=== PATIENT | male | born 1935 | race African-American/Black ===

== ENCOUNTER 2018-10-08 14:45 | Emergency (ER) | payer OTHER ==
[~2018-10-08] VITALS: Ht 180.3 cm; Wt 81.6 kg
--- NOTE | 2018-10-08 14:50 | NUR ---
ED Nurse Note: patient came in to ED brought in by ambulance from home, per family patient had unwitnessed seizure station captain 30 MINS AGO. HX OF SZ. patient is not following any command properly
--- NOTE | 2018-10-08 14:54 | Emergency Room Report ---
History of Present Illness General Chief Complaint: Seizure Source: EMS Present Illness HPI Patient is a 82-year-old male brought in by EMS after witnessed seizure. Patient prior history of recent onset of seizure disorder. Patient had recent started on Vimpat. He had not taken his dose prior to seizure onset which lasted approximately 1 minutes. Patient was noted to have prior history of dementia. Patient is normally followed at the [facility].Patient noted allergy to Keppra. He had one seizure lasting approximately 1-2 minutes. This was reportedly less than his previous seizures and has had 4 seizures in the past. This was reportedly due to patient's history of dementia. The patient's caregiver. Patient been acting normally prior to the seizure and had not been febrile or recently ill. He reportedly missed dosages of his Vimpat Allergies: Coded Allergies: LEVETIRACETAM (Verified Allergy, Unknown, 10/08/18) Patient History Past Medical History: see triage record, seizures Reviewed Nursing Documentation: PMH: Agreed; PSxH: Agreed Nursing Documentation-PMH Past Medical History: No History, Except For Hx Hypertension: Yes Hx Diabetes: Yes Hx Neurological Problems: Yes - SZ, DEMENTIA Review of Systems All Other Systems: negative except mentioned in HPI Physical Exam Vital Signs Date Time Temp Pulse Resp B/P (MAP) Pulse Ox O2 Delivery O2 Flow Rate FiO2 10/08/18 14:40 104 20 146/97 98 Room Air Sp02 EP Interpretation: reviewed, normal General Appearance: normal inspection, well appearing, non-toxic, Chronically Ill Head: atraumatic ENT: normal ENT inspection, hearing grossly normal, normal voice Neck: normal inspection, full range of motion, supple, no bony tend Respiratory: normal inspection, lungs clear, normal breath sounds, no respiratory distress, no retraction, no wheezing Cardiovascular #1: regular rate, rhythm, no edema Gastrointestinal: normal inspection, normal bowel sounds, non tender, soft, no guarding, no hernia Genitourinary: no CVA tenderness Musculoskeletal: normal inspection, back normal, normal range of motion Neurologic: normal inspection, alert, oriented x3, responsive, investment specialist III-XII nml as tested, speech normal Psychiatric: mood/affect normal Skin: normal inspection, normal color, no rash Medical Decision Making Diagnostic Impression: Primary Impression: Epileptic seizure, generalized Additional Impression: Cerebral ventriculomegaly ER Course Presented for seizure activity. Differential diagnosis include was not limited to CVA, intracranial hemorrhage, medication withdrawal, electrolyte abnormality among others. Because of complexity of patient's case laboratory testing and imaging studies were ordered.Patient's laboratory testing was unremarkable. Patient was given Vimpat. Patient noted to have gradual improvement in his mental status. At the time of discharge patient was ambulatory with assistance which is baseline mental status.Urinalysis showed some evidence of hematuria which is likely traumatic due to catheterization.Patient was noted to have some history of dementia and is baseline somewhat confused.Patient was discharged home with his caregiver who was advised to have him follow-up with his neurologist. Patient was to return if there is any worsening of condition Labs Test 10/08/18 15:40 10/08/18 18:41 White Blood Count 10.8 K/UL (4.8-10.8) Red Blood Count 5.64 M/UL (4.70-6.10) Hemoglobin 12.7 G/DL (14.2-18.0) Hematocrit 41.3 % (42.0-52.0) Mean Corpuscular Volume 73 FL (80-99) Mean Corpuscular Hemoglobin 22.5 PG (27.0-31.0) Mean Corpuscular Hemoglobin Concent 30.8 G/DL (32.0-36.0) Red Cell Distribution Width 12.5 % (11.6-14.8) Platelet Count 197 K/UL (150-450) Mean Platelet Volume 8.1 FL (6.5-10.1) Neutrophils (%) (Auto) % (45.0-75.0) Lymphocytes (%) (Auto) % (20.0-45.0) Monocytes (%) (Auto) % (1.0-10.0) Eosinophils (%) (Auto) % (0.0-3.0) Basophils (%) (Auto) % (0.0-2.0) Differential Total Cells Counted 100 Neutrophils % (Manual) 91 % (45-75) Lymphocytes % (Manual) 8 % (20-45) Monocytes % (Manual) 1 % (1-10) Eosinophils % (Manual) 0 % (0-3) Basophils % (Manual) 0 % (0-2) Band Neutrophils 0 % (0-8) Platelet Estimate Adequate Platelet Morphology Normal Red Blood Cell Morphology Normal Sodium Level 138 MMOL/L (136-145) Potassium Level 3.8 MMOL/L (3.5-5.1) Chloride Level 100 MMOL/L (98-107) Carbon Dioxide Level 31 MMOL/L (21-32) Anion Gap 7 mmol/L (5-15) Blood Urea Nitrogen 19 mg/dL (7-18) Creatinine 1.2 MG/DL (0.55-1.30) Estimat Glomerular Filtration Rate mL/min (>60) Glucose Level 189 MG/DL (74-106) Calcium Level 9.8 MG/DL (8.5-10.1) Total Bilirubin 0.2 MG/DL (0.2-1.0) Aspartate Amino Transf (AST/SGOT) 19 U/L (15-37) Alanine Aminotransferase (ALT/SGPT) 25 U/L (12-78) Alkaline Phosphatase 114 U/L (46-116) Troponin I 0.005 ng/mL (0.000-0.056) Total Protein 7.9 G/DL (6.4-8.2) Albumin 3.7 G/DL (3.4-5.0) Globulin 4.2 g/dL Albumin/Globulin Ratio 0.9 (1.0-2.7) Urine Color Pale yellow Urine Appearance Slightly cloudy Urine pH 7 (4.5-8.0) Urine Specific [place] 1.015 (1.005-1.035) Urine Protein 2+ (NEGATIVE) Urine Glucose (UA) 2+ (NEGATIVE) Urine Ketones Negative (NEGATIVE) Urine Blood 4+ (NEGATIVE) Urine Nitrite Negative (NEGATIVE) Urine Bilirubin Negative (NEGATIVE) Urine Urobilinogen Normal MG/DL (0.0-1.0) Urine Leukocyte Esterase Negative (NEGATIVE) Urine RBC 60-80 /HPF (0 - 0) Urine WBC 0-2 /HPF (0 - 0) Urine Squamous Epithelial Cells None /LPF (NONE/OCC) Urine Bacteria Few /HPF (NONE) Urine Mucus Few /LPF (NONE/OCC) Last Vital Signs Date Time Temp Pulse Resp B/P (MAP) Pulse Ox O2 Delivery O2 Flow Rate FiO2 10/08/18 14:40 104 20 146/97 98 Room Air Status: improved Disposition: HOME, SELF-CARE Condition: Stable Evaristo Rasheed MD Oct 08, 2018 14:54
[2018-10-08 15:12] VITALS: BP 146/97
[2018-10-08] MEDS ORDERED: Sodium Chloride 500ML 500 ML IV ONE (15:29)
[2018-10-08 15:57] LABS: HEMATOCRIT 41.3 % (42.0-52.0); HEMOGLOBIN 12.7 G/DL (14.2-18.0); MEAN CORPUSCULAR VOLUME 73 FL (80-99); PLATELET COUNT 197 K/UL (150-450); RED BLOOD COUNT 5.64 M/UL (4.70-6.10); RED CELL DISTRIBUTION WIDTH 12.5 % (11.6-14.8); WHITE BLOOD COUNT 10.8 K/UL (4.8-10.8)
[2018-10-08 16:14] LABS: ANION GAP 7 mmol/L (5-15); BLOOD UREA NITROGEN 19 mg/dL (7-18); CALCIUM 9.8 MG/DL (8.5-10.1); CARBON DIOXIDE 31 MMOL/L (21-32); CHLORIDE 100 MMOL/L (98-107); CREATININE 1.2 MG/DL (0.55-1.30); POTASSIUM 3.8 MMOL/L (3.5-5.1); SODIUM 138 MMOL/L (136-145)
[2018-10-08 16:18] LABS: ALANINE AMINOTRANSFERASE 25 U/L (12-78); ALBUMIN 3.7 G/DL (3.4-5.0); ALBUMIN/GLOBULIN RATIO 0.9 (1.0-2.7); ALKALINE PHOSPHATASE 114 U/L (46-116); ASPARTATE AMINO TRANSFERASE 19 U/L (15-37); BILIRUBIN,TOTAL 0.2 MG/DL (0.2-1.0)
--- NOTE | 2018-10-08 16:42 | Diagnostic Imaging Report ---
Indications: Altered mental status Technique: Spiral acquisitions obtained through the brain. Angled axial and coronal 5 x 5 mm slices were reconstructed. Total dose length product 1446.04 mGycm. CTDI vol(s) 70.38 mGy. Dose reduction achieved using automated exposure control Comparison: None. Findings: No acute intracranial hemorrhage nor edema. No mass effect nor midline shift. There is enlargement of the ventricles and extra axial CSF spaces, the former out of proportion to the latter somewhat. Subacute versus old lacunar infarct is seen in the right anterior hirsch radiata extending into the superior basal ganglia region. There is generalized periventricular deep white matter low-attenuation, consistent with chronic ischemic change. Otherwise normal tsang-white differentiation. Impression: Ventriculomegaly, out of proportion to the degree of cortical volume loss. Probably on the basis of predominantly central volume loss, but the possibility of normal pressure hydrocephalus should also be considered. Neh-[id number]-[id number] versus old-right hirsch radiata and basal ganglia lacunar infarct. MRI may be useful to clarify if clinically indicated. Negative for acute intracranial bleed or mass effect The CT scanner at [facility] is accredited by the [employer] and the scans are performed using protocols designed to limit radiation exposure to as low as reasonably achievable to attain images of sufficient resolution adequate for diagnostic evaluation.
--- NOTE | 2018-10-08 18:45 | NUR ---
ED Nurse Note: ua collected and sent down
[2018-10-08 18:58] LABS: APPEARANCE,URINE SLIGHTLY CLOUDY; BILIRUBIN, URINE NEGATIVE (NEGATIVE); COLOR,URINE PALE YELLOW; GLUCOSE, URINE (UA) 2+ (NEGATIVE); KETONES,URINE NEGATIVE (NEGATIVE); LEUKOCYTE ESTERASE ,URINE NEGATIVE (NEGATIVE); NITRITE,URINE NEGATIVE (NEGATIVE); PH,URINE 7 (4.5-8.0); PROTEIN,URINE 2+ (NEGATIVE); UROBILINOGEN,URINE NORMAL MG/DL (0.0-1.0)
--- NOTE | 2018-10-08 19:22 | NUR ---
HAND-OFF: Report given to AURORA ALVARADO .
[2018-10-08 21:45] VITALS: BP 144/94
--- NOTE | 2018-10-08 21:45 | NUR ---
ER Nurse Note: Pt seen, treated, medically cleared by ERMD for DC. Discharge instructions and prescriptions given wtih repeat verbalization by pt and . Instructed pt and follow up with primary care physican within one week. Pt a&ox2, VSS, afebrile. All devices removed; ID band removed; IV remove, site clean and bandaged. Pt left via own transportation.
== END 2018-10-08 21:45 | disposition home or self-care (01) ==
LOC: EDBD 14:45 → EMR 15:25
DX: G40.409 Other generalized epilepsy and epileptic syndromes, not intractable, without status epilepticus (principal); G93.89 Other specified disorders of brain; I10 Essential (primary) hypertension; E11.9 Type 2 diabetes mellitus without complications; F03.90 Unspecified dementia, unspecified severity, without behavioral disturbance, psychotic disturbance, mood disturbance, and anxiety; Z88.8 Allergy status to other drugs, medicaments and biological substances
CPT/HCPCS: 36415; 70450; 80053; 81003; 82962; 84484; 85007; 85025; 99284

== ENCOUNTER 2019-07-28 14:58 | Inpatient (IN) | payer OTHER ==
[~2019-07-28] VITALS: Ht 170.2 cm; Wt 62.6 kg
[2019-07-28] MEDS ORDERED: CELEXA20 MG ORAL (15:04)
[2019-07-28] MEDS ORDERED: LISINOPRIL5 MG ORAL (15:04)
[2019-07-28] MEDS ORDERED: RISPERDAL0.25 MG ORAL (15:04)
[2019-07-28] MEDS ORDERED: AMLODIPINE BES2.5 MG ORAL (15:04)
[2019-07-28] MEDS ORDERED: METFORMIN HCL500 M1 ORAL (15:04)
[2019-07-28 15:05] VITALS: BP 160/84
--- NOTE | 2019-07-28 15:05 | NUR ---
ED Nurse Note: pt brought in by ambulance from home for S/P Sz that was withnessed by his neice. pt was sitting on a couch while the seizing was happenning. denies trauma. pt appears to be lethargic at this time.
[2019-07-28 15:24] LABS: APPEARANCE,URINE CLEAR; BILIRUBIN, URINE NEGATIVE (NEGATIVE); COLOR,URINE PALE YELLOW; GLUCOSE, URINE (UA) NEGATIVE (NEGATIVE); KETONES,URINE NEGATIVE (NEGATIVE); LEUKOCYTE ESTERASE ,URINE NEGATIVE (NEGATIVE); NITRITE,URINE NEGATIVE (NEGATIVE); PH,URINE 5 (4.5-8.0); PROTEIN,URINE 2+ (NEGATIVE); UROBILINOGEN,URINE NORMAL MG/DL (0.0-1.0)
--- NOTE | 2019-07-28 15:24 | NUR ---
ED Nurse Note: blood and urine sent down to lab
--- NOTE | 2019-07-28 15:26 | Emergency Room Report ---
History of Present Illness General Chief Complaint: Seizure Source: EMS Present Illness HPI 83-year-old male history of epilepsy, dementia, takes Vimpat, presents with seizure prior to arrival lasting 30 seconds, patient self terminated, patient was seen in the chair no evidence of trauma, no aggravating relieving factors severity was severe, lasting 30 seconds generalized tonic-clonic she presents for evaluation currently postictal. Allergies: Coded Allergies: LEVETIRACETAM (Verified Allergy, Unknown, 10/08/18) Patient History Limited by: medical condition - Postictal Past Medical History: see triage record Reviewed Nursing Documentation: PMH: Agreed; PSxH: Agreed Nursing Documentation-PMH Hx Hypertension: Yes Hx Diabetes: Yes Hx Neurological Problems: Yes - SZ, DEMENTIA Review of Systems All Other Systems: limited - Postictal Physical Exam Vital Signs Date Time Temp Pulse Resp B/P (MAP) Pulse Ox O2 Delivery O2 Flow Rate FiO2 07/28/19 15:00 84 18 117/57 (77) 100 Room Air 07/28/19 15:05 98 07/28/19 15:05 98.0 Sp02 EP Interpretation: reviewed, normal General Appearance: non-toxic, lethargic Head: normocephalic, atraumatic Eyes: bilateral eye PERRL, bilateral eye EOMI ENT: uvula midline, moist mucus membranes Neck: supple, thyroid normal, supple/symm/no masses Respiratory: lungs clear, no respiratory distress, no retraction, no accessory muscle use Cardiovascular #1: normal peripheral pulses, regular rate, rhythm, no edema, no gallop, no murmur Gastrointestinal: non tender, soft, no guarding, no rebound Musculoskeletal: normal inspection Neurologic: responsive, other - Moving all 4 extremities Psychiatric: mood/affect normal Skin: no rash, warm/dry Medical Decision Making Diagnostic Impression: Primary Impression: Epileptic seizure, generalized Additional Impression: AMS (altered mental status) Qualified Codes: R41.82 - Altered mental status, unspecified ER Course 83-year-old male presents with breakthrough seizure, patient did not take his Vimpat today, patient after seizure tends to become violent, combative Reevaluation 5:45 PM, patient is moving all 4 extremities making conversation however he is very agitated and combative per , patient gets like this after every seizure last seizure was >6 months ago. Will provide patient with Haldol, Ativan, Benadryl Will also provide patient with Vimpat. Patient admitted to Dr. Romo Laboratory Tests Test 07/28/19 15:10 White Blood Count 7.6 K/UL (4.8-10.8) Red Blood Count 5.69 M/UL (4.70-6.10) Hemoglobin 13.3 G/DL (14.2-18.0) L Hematocrit 42.4 % (42.0-52.0) Mean Corpuscular Volume 75 FL (80-99) L Mean Corpuscular Hemoglobin 23.4 PG (27.0-31.0) L Mean Corpuscular Hemoglobin Concent 31.4 G/DL (32.0-36.0) L Red Cell Distribution Width 11.0 % (11.6-14.8) L Platelet Count 141 K/UL (150-450) L Mean Platelet Volume 7.6 FL (6.5-10.1) Neutrophils (%) (Auto) 72.4 % (45.0-75.0) Lymphocytes (%) (Auto) 19.1 % (20.0-45.0) L Monocytes (%) (Auto) 6.0 % (1.0-10.0) Eosinophils (%) (Auto) 1.2 % (0.0-3.0) Basophils (%) (Auto) 1.4 % (0.0-2.0) Urine Color Pale yellow Urine Appearance Clear Urine pH 5 (4.5-8.0) Urine Specific [place] 1.030 (1.005-1.035) Urine Protein 2+ (NEGATIVE) H Urine Glucose (UA) Negative (NEGATIVE) Urine Ketones Negative (NEGATIVE) Urine Blood 3+ (NEGATIVE) H Urine Nitrite Negative (NEGATIVE) Urine Bilirubin Negative (NEGATIVE) Urine Urobilinogen Normal MG/DL (0.0-1.0) Urine Leukocyte Esterase Negative (NEGATIVE) Urine RBC 15-20 /HPF (0 - 0) H Urine WBC 0 /HPF (0 - 0) Urine Squamous Epithelial Cells Occasional /LPF Urine Bacteria Few /HPF (NONE) Urine Mucus Moderate /LPF (NONE/OCC) H Sodium Level 131 MMOL/L (136-145) L Potassium Level 3.7 MMOL/L (3.5-5.1) Chloride Level 98 MMOL/L (98-107) Carbon Dioxide Level 25 MMOL/L (21-32) Anion Gap 9 mmol/L (5-15) Blood Urea Nitrogen 20 mg/dL (7-18) H Creatinine 1.3 MG/DL (0.55-1.30) Estimate Glomerular Filtration Rate mL/min (>60) Glucose Level 188 MG/DL (74-106) H Calcium Level 9.6 MG/DL (8.5-10.1) Total Bilirubin 0.4 MG/DL (0.2-1.0) Aspartate Amino Transferase (AST) 18 U/L (15-37) Alanine Aminotransferase (ALT) 21 U/L (12-78) Alkaline Phosphatase 106 U/L (46-116) Total Protein 7.6 G/DL (6.4-8.2) Albumin 3.6 G/DL (3.4-5.0) Globulin 4.0 g/dL Albumin/Globulin Ratio 0.9 (1.0-2.7) L Urine Opiates Screen Negative (NEGATIVE) Urine Barbiturates Screen Negative (NEGATIVE) Phenytoin (Dilantin) Level 0.5 ug/mL (10-20) L Valproic Acid Level < 3 MCG/ML (50-100) L Carbamazepine (Tegretol) Level < 0.5 ug/mL (4.0-12.0) L Phencyclidine (PCP) Screen Negative (NEGATIVE) Urine Amphetamines Screen Negative (NEGATIVE) Phenobarbital Level < 1.0 ug/mL (15-40) L Urine Benzodiazepines Screen Negative (NEGATIVE) Urine Cocaine Screen Negative (NEGATIVE) Urine Marijuana (THC) Screen Negative (NEGATIVE) EKG Diagnostic Results EKG Time: 15:21 EP Interpretation: NSR, rate 94, QTc 492, no acute ST elevations, left axis deviation, Rhythm Strip Diag. Results Rhythm Strip Time: 15:27 EP Interpretation: yes Rate: 88 Rhythm: NSR, no PVC's, no ectopy Last Vital Signs Date Time Temp Pulse Resp B/P (MAP) Pulse Ox O2 Delivery O2 Flow Rate FiO2 07/28/19 15:05 98.0 88 18 160/84 99 Room Air 98 Disposition: ADMITTED INPATIENT Condition: Stable Robert Ziegler MD Jul 28, 2019 15:26
[2019-07-28 15:41] LABS: BASOPHILS % (AUTO) 1.4 % (0.0-2.0); EOSINOPHILS % (AUTO) 1.2 % (0.0-3.0); HEMATOCRIT 42.4 % (42.0-52.0); HEMOGLOBIN 13.3 G/DL (14.2-18.0); LYMPHOCYTES % (AUTO) 19.1 % (20.0-45.0); MEAN CORPUSCULAR VOLUME 75 FL (80-99); NEUTROPHILS % (AUTO) 72.4 % (45.0-75.0); PLATELET COUNT 141 K/UL (150-450); RED BLOOD COUNT 5.69 M/UL (4.70-6.10); WHITE BLOOD COUNT 7.6 K/UL (4.8-10.8)
[2019-07-28 15:44] LABS: ANION GAP 9 mmol/L (5-15); BLOOD UREA NITROGEN 20 mg/dL (7-18); CALCIUM 9.6 MG/DL (8.5-10.1); CARBON DIOXIDE 25 MMOL/L (21-32); CHLORIDE 98 MMOL/L (98-107); CREATININE 1.3 MG/DL (0.55-1.30); POTASSIUM 3.7 MMOL/L (3.5-5.1); SODIUM 131 MMOL/L (136-145)
[2019-07-28] MEDS ORDERED: VIMPAT100 MG PO (15:47)
[2019-07-28] MEDS ORDERED: MELATONIN3 MG ORAL (15:47)
[2019-07-28] MEDS ORDERED: CITALOPRAM10 MG/5 M1 ORAL (15:47)
[2019-07-28 15:48] LABS: ALANINE AMINOTRANSFERASE 21 U/L (12-78); ALBUMIN 3.6 G/DL (3.4-5.0); ALBUMIN/GLOBULIN RATIO 0.9 (1.0-2.7); ALKALINE PHOSPHATASE 106 U/L (46-116); ASPARTATE AMINO TRANSFERASE 18 U/L (15-37); BILIRUBIN,TOTAL 0.4 MG/DL (0.2-1.0)
[2019-07-28] MEDS ORDERED: Lacosamide 50mg tablet ORAL ONE (17:00)
[2019-07-28 17:15] VITALS: BP 148/81
[2019-07-28] MEDS ORDERED: Haloperidol 5mg/ml Inj IM ONE (17:45)
[2019-07-28] MEDS ORDERED: DiphenhydrAMINE 50mg/ml Inj IM ONE (17:45)
[2019-07-28] MEDS ORDERED: LORazepam Inj 2mg/ml 1ml IV ONE (17:45)
[2019-07-28] MEDS ORDERED: LORazepam Inj 2mg/ml 1ml ONE (17:47)
[2019-07-28] MEDS ORDERED: Haloperidol 5mg/ml Inj ONE (17:48)
[2019-07-28] MEDS ORDERED: DiphenhydrAMINE 50mg/ml Inj ONE (17:48)
--- NOTE | 2019-07-28 17:48 | NUR ---
ED Nurse Note: Sitter request made to nursing car repair supervisor for admission. Family member at bedside at this time.
--- NOTE | 2019-07-28 18:13 | NUR ---
ED Nurse Note: Rebekah (odilia tracy ) [phone]
[2019-07-28] MEDS ORDERED: LORazepam Inj 2mg/ml 1ml IV PRN (20:15)
--- NOTE | 2019-07-28 21:02 | NUR ---
ED Nurse Note: Report given to CHRISTIANO Bjoorquez
--- NOTE | 2019-07-28 21:03 | History and Physical Report ---
DATE OF ADMISSION: 07/28/2019 CHIEF COMPLAINT: Seizures. HISTORY OF PRESENT ILLNESS: Mr. Grover is an 83-year-old male. He has a history of hypertension, seizure disorder, dementia and schizophrenia. He was brought in by his family members with complaints of seizures. According to the family members, the patient refused to take his seizure medicines the night prior and the morning of admission. He had a seizure in the morning. He was brought to the emergency room. There, he was given confused and combative. He required anxiolytics. He was able to take his seizure medications and he is now admitted for further evaluation and care. He currently remains confused and he is unable to provide any history. According to the family members, he is mostly verbal, but is confused because of his underlying dementia. PAST MEDICAL HISTORY: As above. PAST SURGICAL HISTORY: None. CURRENT MEDICATIONS: Reconciled and reviewed. ALLERGIES: Include allergies to Keppra and possibly benazepril. FAMILY HISTORY: Noncontributory. SOCIAL HISTORY: There is no known history of tobacco, ethanol, or drugs. REVIEW OF SYSTEMS: From the patient is unobtainable as he is confused. PHYSICAL EXAMINATION: VITAL SIGNS: Temperature 98, pulse 84, respirations 17, and blood pressure 148/81. GENERAL: The patient is a well-developed thin male, in no apparent distress. He is awake and alert, but he is confused. NECK: Supple. HEART: Regular rate and rhythm. LUNGS: Clear. ABDOMEN: Soft, nontender, and nondistended. EXTREMITIES: Without clubbing or cyanosis. NEUROLOGIC: The patient is oriented only to his name. He moves all 4 extremities. LABORATORY DATA: Labs showed a white count of 7, hemoglobin 13, hematocrit 42, and platelets of 141,000. Sodium 131, potassium is 3.7, and glucose of 188. Urine showed no WBCs. ASSESSMENT: This is an 83-year-old male with history of hypertension, borderline diabetes, dementia, schizophrenia, and seizure disorder admitted with complaints of seizures, suspect secondary to medication noncompliance. He is also mildly hyponatremic. PLAN: 1. IV hydration. 2. Resume Vimpat. 3. IV Ativan as needed. 4. If stable, the morning, he would likely be discharged to follow up with his neurologist. Buster Abigail Romo DR: FARIHA JOB#: [id number] CC:
--- NOTE | 2019-07-28 21:05 | NUR ---
ED Nurse Note: pt was brought up to [facility] floor room 401-2 accompanied by 2 RN in stable condition. Belonging list signed. Report given to CHRISTIANO Bojorquez
[2019-07-28] MEDS: NovoLOG Insulin Flexpen SUBQ SCH (21:30)
--- NOTE | 2019-07-28 21:30 | NUR ---
NURSE NOTES: Received patient asleep,arousable,follows simple command,with essentially normal vital signs.
[2019-07-28 21:44] VITALS: BP 114/57
[2019-07-29 00:17] VITALS: BP 146/77
[2019-07-29 04:00] VITALS: BP 139/70
[2019-07-29] MEDS: NovoLOG Insulin Flexpen SUBQ SCH ×2 (05:26→11:30)
--- NOTE | 2019-07-29 05:45 | Consultation ---
DATE OF CONSULTATION: 07/28/2019 CARDIOLOGY CONSULTATION CONSULTING PHYSICIAN: Jaron Vance M.D. REQUESTING PHYSICIAN: Buster Romo M.D. REASON FOR CONSULTATION: Labile blood pressure breakthrough seizure. HISTORY OF PRESENT ILLNESS: This is an 83-year-old male with noncompliant with medications and had a breakthrough seizure. He was admitted to the hospital for management. He also has had very labile blood pressure readings prompting this consultation. PAST MEDICAL HISTORY: Includes seizure disorder, hypertension, cerebrovascular disease with dementia, and schizoaffective disorder. ALLERGIES: Keppra and benazepril. MEDICATIONS: Reviewed. SOCIAL HISTORY: Negative for smoking, alcohol, or substance abuse. FAMILY HISTORY: Noncontributory. REVIEW OF SYSTEMS: Not obtainable from the patient. PHYSICAL EXAMINATION: GENERAL: Afebrile, confused, and oriented only to person. VITAL SIGNS: Blood pressure range from 117/57 to 160/84, heart rate is 88, respiratory rate 18, and oxygen saturation 99% on room air. HEENT: Conjunctivae are pink. Oropharynx clear. Mucous membranes dry. NECK: Supple. Jugular venous pressure normal. LUNGS: Clear. CARDIAC: Regular rhythm and rate. Normal S1 and S2 with no murmur. ABDOMEN: Soft and nontender. EXTREMITIES: Without edema. NEUROLOGIC: There is no focal neurologic deficits noted. LABORATORY DATA: EKG with sinus rhythm and no acute abnormality. Sodium 131, potassium 3.7, bicarbonate 25, BUN 20, creatinine 1.3, and glucose 188. White count 7.6 and hemoglobin 13.3. IMPRESSION: 1. Breakthrough seizures likely due to medication noncompliance. 2. Hypertensive heart disease with labile blood pressure. 3. Hypovolemia and hyponatremia. PLAN: 1. Antiseizure therapy. 2. Titrate antihypertensives and avoid AGUSTIN inhibitors. 3. Metabolic profile including B12, folate, and thyroid function studies. 4. Titrate amlodipine for adequate blood pressure control. 5. Saline hydration. Jaron Vance M.D. DR: CURT JOB#: [id number] CC:
[2019-07-29] MEDS ORDERED: Lacosamide 50mg tablet ORAL SCH (06:00)
--- NOTE | 2019-07-29 06:14 | General Progress Note ---
Assessment/Plan Problem List: (1) AMS (altered mental status) ICD Codes: R41.82 - Altered mental status, unspecified SNOMED: 734788278 Qualifiers: Qualified Codes: R41.82 - Altered mental status, unspecified (2) Epileptic seizure, generalized ICD Codes: G40.309 - Generalized idiopathic epilepsy and epileptic syndromes, not intractable, without status epilepticus SNOMED: 50947193 (3) Seizure disorder ICD Codes: G40.909 - Epilepsy, unspecified, not intractable, without status epilepticus SNOMED: 232275595 Status: stable Assessment/Plan: follow up labs(na) level compliance stressed cont sz rx BP rx pt eval dc planning- has appointment with neurology at the [place] later today Subjective Allergies: Coded Allergies: LEVETIRACETAM (Verified Allergy, Unknown, 10/08/18) Subjective stable. no complaints. no seizures. compliant with meds. Objective Last 24 Hour Vital Signs Date Time Temp Pulse Resp B/P (MAP) Pulse Ox O2 Delivery O2 Flow Rate FiO2 07/29/19 04:00 97.2 60 18 139/70 (93) 96 07/29/19 00:17 98.4 63 19 146/77 (100) 95 07/28/19 21:44 98.4 61 18 114/57 (76) 99 07/28/19 21:44 Room Air 07/28/19 21:05 98.0 82 17 130/81 98 Room Air 07/28/19 17:15 98.2 84 17 148/81 98 Room Air 99 07/28/19 15:05 98.0 88 18 160/84 99 Room Air 98 07/28/19 15:05 88 18 Room Air 98 07/28/19 15:00 84 18 117/57 (77) 100 Room Air Intake and Output 07/28/19 07/29/19 18:59 06:59 Intake Total 1000 ml 1600 ml Balance 1000 ml 1600 ml Intake IV Total 1000 ml 1600 ml # Voids 2 Laboratory Tests 07/28/19 15:10: White Blood Count 7.6, Red Blood Count 5.69, Hemoglobin 13.3L, Hematocrit 42.4, Mean Corpuscular Volume 75L, Mean Corpuscular Hemoglobin 23.4L, Mean Corpuscular Hemoglobin Concent 31.4L, Red Cell Distribution Width 11.0L, Platelet Count 141L, Mean Platelet Volume 7.6, Neutrophils (%) (Auto) 72.4, Lymphocytes (%) (Auto) 19.1L, Monocytes (%) (Auto) 6.0, Eosinophils (%) (Auto) 1.2, Basophils (%) (Auto) 1.4, Urine Color Pale yellow, Urine Appearance Clear, Urine pH 5, Urine Specific [place] 1.030, Urine Protein 2+H, Urine Glucose (UA) Negative, Urine Ketones Negative, Urine Blood 3+H, Urine Nitrite Negative, Urine Bilirubin Negative, Urine Urobilinogen Normal, Urine Leukocyte Esterase Negative, Urine RBC 15-20H, Urine WBC 0, Urine Squamous Epithelial Cells Occasional, Urine Bacteria Few, Urine Mucus ModerateH, Sodium Level 131L, Potassium Level 3.7, Chloride Level 98, Carbon Dioxide Level 25, Anion Gap 9, Blood Urea Nitrogen 20H, Creatinine 1.3, Estimat Glomerular Filtration Rate , Glucose Level 188H, Calcium Level 9.6, Total Bilirubin 0.4, Aspartate Amino Transf (AST/SGOT) 18, Alanine Aminotransferase (ALT/SGPT) 21, Alkaline Phosphatase 106, Total Protein 7.6, Albumin 3.6, Globulin 4.0, Albumin/Globulin Ratio 0.9L, Urine Opiates Screen Negative, Urine Barbiturates Screen Negative, Phenytoin (Dilantin) Level 0.5L, Valproic Acid (Depakene) Level < 3L, Carbamazepine (Tegretol) Level < 0.5L, Phencyclidine (PCP) Screen Negative, Urine Amphetamines Screen Negative, Phenobarbital Level < 1.0L, Urine Benzodiazepines Screen Negative, Urine Cocaine Screen Negative, Urine Marijuana (THC) Screen Negative Height (Feet): 5 Height (Inches): 7.00 Weight (Pounds): 138 Buster Romo MD Jul 29, 2019 06:14
--- NOTE | 2019-07-29 06:14 | General Progress Note ---
Assessment/Plan Problem List: (1) AMS (altered mental status) ICD Codes: R41.82 - Altered mental status, unspecified SNOMED: 260327907 Qualifiers: Qualified Codes: R41.82 - Altered mental status, unspecified (2) Epileptic seizure, generalized ICD Codes: G40.309 - Generalized idiopathic epilepsy and epileptic syndromes, not intractable, without status epilepticus SNOMED: 48276629 (3) Seizure disorder ICD Codes: G40.909 - Epilepsy, unspecified, not intractable, without status epilepticus SNOMED: 486726224 Status: stable Assessment/Plan: follow up labs(na) level compliance stressed cont sz rx BP rx pt eval dc planning- has appointment with neurology at the [facility] later today Subjective ROS Limited/Unobtainable: No Constitutional: Reports: weakness HEENT: Reports: no symptoms Cardiovascular: Reports: no symptoms Respiratory: Reports: no symptoms Gastrointestinal/Abdominal: Reports: no symptoms Genitourinary: Reports: no symptoms Neurologic/Psychiatric: Reports: seizure Endocrine: Reports: no symptoms Hematologic/Lymphatic: Reports: no symptoms Allergies: Coded Allergies: LEVETIRACETAM (Verified Allergy, Unknown, 10/08/18) All Systems: reviewed and negative except above Subjective stable. no complaints. no seizures. compliant with meds. Objective Last 24 Hour Vital Signs Date Time Temp Pulse Resp B/P (MAP) Pulse Ox O2 Delivery O2 Flow Rate FiO2 07/29/19 04:00 97.2 60 18 139/70 (93) 96 07/29/19 00:17 98.4 63 19 146/77 (100) 95 07/28/19 21:44 98.4 61 18 114/57 (76) 99 07/28/19 21:44 Room Air 07/28/19 21:05 98.0 82 17 130/81 98 Room Air 07/28/19 17:15 98.2 84 17 148/81 98 Room Air 99 07/28/19 15:05 98.0 88 18 160/84 99 Room Air 98 07/28/19 15:05 88 18 Room Air 98 07/28/19 15:00 84 18 117/57 (77) 100 Room Air Intake and Output 07/28/19 07/29/19 18:59 06:59 Intake Total 1000 ml 1600 ml Balance 1000 ml 1600 ml Intake IV Total 1000 ml 1600 ml # Voids 2 Laboratory Tests 07/28/19 15:10: White Blood Count 7.6, Red Blood Count 5.69, Hemoglobin 13.3L, Hematocrit 42.4, Mean Corpuscular Volume 75L, Mean Corpuscular Hemoglobin 23.4L, Mean Corpuscular Hemoglobin Concent 31.4L, Red Cell Distribution Width 11.0L, Platelet Count 141L, Mean Platelet Volume 7.6, Neutrophils (%) (Auto) 72.4, Lymphocytes (%) (Auto) 19.1L, Monocytes (%) (Auto) 6.0, Eosinophils (%) (Auto) 1.2, Basophils (%) (Auto) 1.4, Urine Color Pale yellow, Urine Appearance Clear, Urine pH 5, Urine Specific [place] 1.030, Urine Protein 2+H, Urine Glucose (UA) Negative, Urine Ketones Negative, Urine Blood 3+H, Urine Nitrite Negative, Urine Bilirubin Negative, Urine Urobilinogen Normal, Urine Leukocyte Esterase Negative, Urine RBC 15-20H, Urine WBC 0, Urine Squamous Epithelial Cells Occasional, Urine Bacteria Few, Urine Mucus ModerateH, Sodium Level 131L, Potassium Level 3.7, Chloride Level 98, Carbon Dioxide Level 25, Anion Gap 9, Blood Urea Nitrogen 20H, Creatinine 1.3, Estimat Glomerular Filtration Rate , Glucose Level 188H, Calcium Level 9.6, Total Bilirubin 0.4, Aspartate Amino Transf (AST/SGOT) 18, Alanine Aminotransferase (ALT/SGPT) 21, Alkaline Phosphatase 106, Total Protein 7.6, Albumin 3.6, Globulin 4.0, Albumin/Globulin Ratio 0.9L, Urine Opiates Screen Negative, Urine Barbiturates Screen Negative, Phenytoin (Dilantin) Level 0.5L, Valproic Acid (Depakene) Level < 3L, Carbamazepine (Tegretol) Level < 0.5L, Phencyclidine (PCP) Screen Negative, Urine Amphetamines Screen Negative, Phenobarbital Level < 1.0L, Urine Benzodiazepines Screen Negative, Urine Cocaine Screen Negative, Urine Marijuana (THC) Screen Negative Height (Feet): 5 Height (Inches): 7.00 Weight (Pounds): 138 General Appearance: WD/WN, alert Neck: supple Cardiovascular: regular rhythm Respiratory/Chest: lungs clear Abdomen: normal bowel sounds, non tender, soft, no organomegaly Edema: no edema noted Arm (L), no edema noted Arm (R), no edema noted Leg (L), no edema noted Leg (R), no edema noted Pedal (L), no edema noted Pedal (R), no edema noted Generalized Neurologic: discount clerk II-XII grossly normal, alert, responsive Buster Romo MD Jul 29, 2019 06:14
--- NOTE | 2019-07-29 07:20 | NUR ---
HAND-OFF: Report given to Geo Mulligan RN.
--- NOTE | 2019-07-29 07:30 | NUR ---
NURSE NOTES: Received pt from NANCY ALVARADO. Pt is confused and orient x2. pt is in RA, no SOB or acute respiratory distress noted. pt has intact iv access LFA 18G is running well. all needs attended, bed is locked and is in the lowest position, call light within easy reach. will continue to monitor.
[2019-07-29 08:00] VITALS: BP 137/65
[2019-07-29 08:18] LABS: ALANINE AMINOTRANSFERASE 18 U/L (12-78); ANION GAP 13 mmol/L (5-15); BILIRUBIN,TOTAL 0.5 MG/DL (0.2-1.0); CARBON DIOXIDE 20 MMOL/L (21-32); CHLORIDE 103 MMOL/L (98-107); SODIUM 136 MMOL/L (136-145)
[2019-07-29 08:29] LABS: ALBUMIN 3.5 G/DL (3.4-5.0); ALKALINE PHOSPHATASE 102 U/L (46-116); ASPARTATE AMINO TRANSFERASE 35 U/L (15-37); BLOOD UREA NITROGEN 16 mg/dL (7-18); CREATININE 0.8 MG/DL (0.55-1.30)
[2019-07-29 08:57] LABS: CALCIUM 9.1 MG/DL (8.5-10.1)
[2019-07-29] MEDS ORDERED: Citalopram Hydrobromide 10mg Tab ORAL SCH (09:00)
[2019-07-29] MEDS ORDERED: Lisinopril 2.5mg tab ORAL SCH (09:00)
[2019-07-29] MEDS ORDERED: Heparin 5000 units/ml inj SUBQ SCH ×2 (09:00→21:00)
--- NOTE | 2019-07-29 09:30 | NUR ---
NURSE NOTES: Dr MIRZA is aware about PLT 141 and other lab results, ordered to hold HEP if plt<100 and CCHO MEDIUM + CARDIAC diet, noted and carried out. will continue to monitor.
--- NOTE | 2019-07-29 11:18 | NUR ---
*-* INSURANCE *-* ALL AVAILABLE CLINICALS HEV BEEN FAXED TO: [facility] [phone] [facility]#[id number] CM: SILVIA #[phone] [phone] FAX#[phone] REVIEWS/CLINICALS Addendum: 07/29/19 at 1153 by BRANDEE DEJESUS CM [facility] Ref#[id number] CM: Silvia #[phone] ext [phone]
[2019-07-29 12:00] VITALS: BP 139/86
--- NOTE | 2019-07-29 14:21 | Cardiology Report ---
APPROVED REPORT EKG Measurement Heart [id number] Undetermined rhythm Left anterior fascicular block Septal infarct, age undetermined Abnormal ECG
--- NOTE | 2019-07-29 15:09 | NUR ---
NURSE NOTES: Dr BARRON visited pt and placed discharge order, all discharge assessments and instructions done and pt and eugene PASCUAL verbally confirmed to understand all. pt is stable. V/S stable. Dr barron gave pt H$P to show to doctors. all belongings are with pt and list was signed by SAMARA. IV access D/C. Pt left hospital with accompany of eugene.
--- NOTE | 2019-07-29 23:30 | Progress Note ---
DATE: 07/29/2019 CARDIOLOGY PROGRESS NOTE SUBJECTIVE: The patient has not had any new seizures. He has been hydrated with IV fluids. He is at his baseline mentation. OBJECTIVE: VITAL SIGNS: Blood pressure 137/65, heart rate 67, respiratory rate 20, afebrile. LUNGS: Clear. CARDIAC: Regular. Normal S1, S2 with a fourth heart sound. ABDOMEN: Soft. EXTREMITIES: No edema. LABORATORY DATA: Magnesium 1.8, potassium 4, bicarb 20, BUN 16, creatinine 0.8. B12, folate normal. TSH 0.015. IMPRESSION: 1. Breakthrough seizure. 2. Metabolic acidosis, likely due to seizure. 3. Prerenal azotemia, resolved. 4. Low TSH, likely due to sick euthyroid syndrome with no signs of hyperthyroid state. 5. Labile hypertension following seizures, now recovered. 6. Medication noncompliance. Discussed with sister and to be monitored closely. PLAN: Stable for outpatient followup from cardiovascular standpoint on current medication regimen. Jaron Vance M.D. DR: ELEANOR JOB#: [id number] CC:
--- NOTE | 2019-07-30 14:23 | NUR ---
*-* INSURANCE *-* ALL AVAILABLE CLINICALS HEV BEEN FAXED TO: [facility] Ref#[id number] CM: Silvia ext [phone] Addendum: 07/31/19 at 1524 by BRANDEE DEJESUS CM DISCHARGE SUMMARY FAXED Addendum: 07/31/19 at 1525 by BRANDEE DEJESUS CM CALLED SILVIA TO LET HER KNOW I HAVE FAXED THE DISCHARGE SUMMARY
--- NOTE | 2019-07-31 09:54 | Discharge Summary ---
Discharge Summary Discharge Summary _ DATE OF ADMISSION: 07/28/2019 DATE OF DISCHARGE: 07/29/2019 DISCHARGED BY: Dr. Romo REASON FOR ADMISSION: 83 years old male with past medical history of hypertension, diabetes mellitus, seizure disorder, dementia, presented after seizure episode which occurred prior to arrival and lasted 30 seconds. Patient presented postictal. Vital signs were stable. Patient did not take Vimpat that day. Patient started on Vimpat. Upon further evaluation patient was able to make conversation, but was very agitated and combative. Patient received a psychiatric cocktail , for being violent , combative and agitated with Haldol , Ativan and Benadryl. Per patient's , aggressive and violent behavior usually happened after seizure episode. Patient became more cooperative and calm afterwards. Laboratory work-up revealed no leukocytosis , hemoglobin 13.3, hematocrit 42.4 , platelet count 141. Urinalysis revealed +2 protein, no evidence of urinary tract infection. Sodium 131. BUN 20, creatinine 1.3. Stable LFT. Urine toxicology screen was negative. EKG revealed sinus rhythm, no acute ischemic changes. Patient subsequently admitted to for further management. CONSULTANTS: [employer] architect Dr. Vance [facility] COURSE: Patient admitted and started on the IV hydration. Seizure precaution maintained. Vimpat was resumed. Ativan was on board as needed for breakthrough seizures. Patient was counseled on compliance with medication regimen. B12 and folate levels were stable Low TSH noted. Patient had no signs and symptoms of hyperthyroidism. According to [employer] architect , low TSH was likely due to euthyroid syndrome. Renal parameters and electrolytes were closely monitored. Sodium with IV hydration from 131 up to 136. BUN from 20 down to 16 and creatinine from 1.3 down to 0.8. Magnesium stable 1.8. Blood pressure was managed with calcium channel juan carlos . DVT prophylaxis provided. Blood sugar was managed with sliding scale of insulin. Patient clinically stabilized and was ready for discharge home. Outpatient follow-up with neurologist . Due to rapid and unexpected improvement in patient condition , patient was discharged in 1 day. FINAL DIAGNOSES: Breakthrough seizure Seizure disorder with generalized epileptic seizure Hypovolemia Hyponatremia likely due to dehydration -resolved Metabolic acidosis, likely due to seizure Altered mental status-resolved Low TSH likely due to sick euthyroid syndrome ; no signs of hyperthyroidism Labile hypertension following seizure resolved Hypertensive heart disease with labile blood pressure Noncompliance with medication DISCHARGE MEDICATIONS: See Medication Reconciliation list. DISCHARGE INSTRUCTIONS: Patient was discharged home. Follow up with neurologist in one-two weeks. I have been assigned to dictate discharge summary for this account. I was not involved in the patient's management. Marialuisa Schultz NP Jul 31, 2019 09:53
== END 2019-07-29 15:12 | disposition home or self-care (01) | DRG 101 ==
LOC: EDUNIT# 14:58 → EDBD 14:58 → EMR 17:01 → 4E 17:45 → EDBEDREQ 20:46
DX: G40.409 Other generalized epilepsy and epileptic syndromes, not intractable, without status epilepticus (principal); E87.1 Hypo-osmolality and hyponatremia; E87.2 Acidosis; F03.90 Unspecified dementia, unspecified severity, without behavioral disturbance, psychotic disturbance, mood disturbance, and anxiety; I11.9 Hypertensive heart disease without heart failure; Z88.8 Allergy status to other drugs, medicaments and biological substances; E11.9 Type 2 diabetes mellitus without complications; E86.1 Hypovolemia; E86.0 Dehydration; F25.9 Schizoaffective disorder, unspecified; R41.82 Altered mental status, unspecified; Z91.14 Patient's other noncompliance with medication regimen; E07.81 Sick-euthyroid syndrome; F01.50 Vascular dementia, unspecified severity, without behavioral disturbance, psychotic disturbance, mood disturbance, and anxiety
CPT/HCPCS: 36415; 80053; 80156; 80164; 80184; 80185; 80307; 81003; 82607; 82746; 82962; 83735; 84443; 85025; 93005; 96361; 96372; 96374; 99285; J1815; J7030